=== PATIENT | female | born 1955 | race Caucasian/White ===

== ENCOUNTER 2017-02-02 05:37 | Inpatient (IN) | payer OTHER ==
[~2017-02-02] VITALS: Ht 170.2 cm; Wt 70.5 kg
[2017-02-02] VITALS (17 sets, daily range): BP systolic 105–139; BP diastolic 66–80; PULSE 73–85; RESP 10–18; O2SAT 97–100
[2017-02-02] MEDS: Lactated Ringer's 1,000 ML IV SCH ×3 (05:00→08:22)
[2017-02-02] MEDS ORDERED: DEXTROSE 5% IV ONE (06:00)
[2017-02-02] MEDS ORDERED: Bupivacaine Liposome 1.3% 20 mL Inj INFILTRATE ONE ×2 (06:00→08:19)
[2017-02-02] MEDS ORDERED: CEFOTETAN IV ONE ×2 (06:00→06:10)
[2017-02-02] MEDS ORDERED: Lactated Ringer's 500 ML IV PRN (07:17)
[2017-02-02] MEDS ORDERED: Lactated Ringer's 1,000 ML IV SCH (07:17)
--- NOTE | 2017-02-02 07:17 | PCM.HPANE ---
Patient Data Date of Service: February 02, 2017 Surgeon Admitting Provider: Attending Provider:Cali Jason MD Primary Care Physician:Ivis Other Provider:Hanna Amado Anesthesia Reason for Visit Sigmoid Diverticulitis Ht/WT & BMI Height (Feet): 5 Height (Inches): 7.00 Weight (Kilograms): 70 Body Mass Index 24.00 Allergies Coded Allergies: No Known Allergies (Unverified , 01/28/17) Past Anesthesia History Anesthesia History: Denies:: Abnormal Airway, Anesthesia Reactions (no prior surgery), Difficult Intubation, Fam Anesthesia Reaction Diabetes History Hx Diabetes?: No Current Bedside Blood Glucose: 96 MRSA MRSA: No Medications Hypertension Medication: No Home Meds Incl Beta Koffi: No No Active Prescriptions or Reported Meds History History of ENT Problems?: No HEENT History: Denies:: Abnormal Airway Cataracts Difficult Intubation Dysphagia Glaucoma Hearing Problem Sinus Problem TMJ Denture Type: None Teeth Condition: Within Normal Limits Hx of Heart Problems?: No Cardiovascular History: Denies:: AICD Abdominal Aortic Aneurism Atrial Fibrillation Chest Pain Congestive Heart Failure Coronary Artery Disease Edema Heart Murmur Hypertension Irregular Heartbeat Pacemaker Peripheral Vascular Rheumatic Fever Hx of Respiratory Problem?: No Respiratory History: Denies:: Asthma COPD Emphysema Oxygen Administration Pneumonia Tuberculosis Use of C-PAP Machine Use of Inhalers / NEBS Hx Neurologic Problems?: No Neurological History: Denies:: Alzheimer's Disease CVA Dementia Headaches Multiple Sclerosis Parkinson's Disease Seizures TIA Hx of GI Problems?: Yes Hx of Problems?: No Genitourinary History: Denies:: Kidney Stones Urinary Tract Infection Female Hx: Denies:: Currently (post menopausal ) Problems with Breasts? Skin History: Denies:: History Skin Disorders? Pressure Ulcers Hx Musculoskeletal Problems?: Yes Musculoskeletal History: Positive for:: Osteoarthritis Denies:: Back Injury Fibromyalgia Joint Replacement Myasthenia Gravis Systemic Lupus Hx of Psycho/Social Problems?: No Psycho Social History: Denies:: Anxiety Hx Depression Hx Surgeries?: No Hx Any Other Health Problems?: Yes Other History: Denies:: Cancer Thyroid Disease History Blood Transfusions: Positive for:: Accept Blood Products? Denies:: Blood Transfusions Hx Diabetes: NoBedside Blood Glucose: 96 Hx Alcohol Use: YesAlcoholic Drinks Per Day: one glass wine dailyHx Substance Use: NoHave You Smoked inLast 12 mo: No Stop/Bang S-Snoring: Do You Snore Loudly: No T-Tired: feel tired, fatigued: No O-Obsered: Observed not breath: No P-Blood Pressure: treated: No B- Body Mass Index > 35 kg/m2: No A- Age over 50: Yes N- Neck Large Circumference: No G- Gender Male: No ISAÍAS Total Score: 1 ISAÍAS Risk Assessment: Low Risk, <3 Yes Risk Assessment Category Category 1A: Patient has history of documented sleep apnea, and HAS NOT received any narcotic, sedative or anesthesia administration during this stay. Category 1B: Patient has history of documented sleep apnea, and HAS received any narcotic , sedative or anesthesia administration during this stay Category 2: Patient has SUSPECTED Obstructive Sleep Apnea, and HAS received any narcotic , sedative or anesthesia administration during this stay. Category 3: Patient has SUSPECTED Obstructive Sleep Apnea and HAS NOT received narcotic, sedative or anesthesia administration during this stay. Category 4: Outpatient in Procedural Areas with known sleep apnea or who screen positive for High Risk via the STOP/BANG questionnaire. Exam Exam Vital Signs Vital Signs Date Time Temp Pulse Resp B/P Pulse Ox O2 Delivery O2 Flow Rate FiO2 02/02/17 06:30 36.1 81 16 108/76 98 Room Air General Appearance: Alert, Oriented X3, Cooperative, No Acute Distress HEENT/AIRWAY: MP 1 Lungs: Clear to Auscultation, Normal Air Movement Heart: Exam Unremarkable, Regular Rate/Rhythm, No Murmurs/Rubs/Gallops Meds/Labs/Diagnostics Admission Meds Current Medications Lactated Ringer's (Lr) 1,000 ml @ 120 mls/hr Q8H20M IV Last administered on t 06:30; Start 02/02/17 at 05:00; Stop 02/02/17 at 13:19 Bedside Blood Glucose: 96 Plan Impression Patient chart reviewed, patient interviewed and anesthestic plan with risks, benefits, and alternatives discussed, and informed consent obtained. NPO per Anesth. Guidelines: Yes ASA Physical Status: ASA2 Mod Systemic Disease Anesthetic Plan: GA Bene/Risks/Altern/Consents: Yes HP Complete Prior to Induction: Yes Nadir Israel MD February 02, 2017 07:17
[2017-02-02] MEDS ORDERED: Phenylephrine 10,000 mCg/mL Inj IVPUSH PRN (07:20)
[2017-02-02] MEDS ORDERED: HYDROmorphone 1 mg/mL Inj IVPUSH PRN (07:20)
[2017-02-02] MEDS ORDERED: Ondansetron 2 mg/mL 2 mL Inj IVPUSH PRN ×2 (07:20→13:40)
[2017-02-02] MEDS ORDERED: Dexamethasone 4 mg/mL Inj IVPUSH PRN (07:20)
[2017-02-02] MEDS ORDERED: EPHEDrine Sulfate 50 mg/mL Inj IVPUSH PRN (07:20)
[2017-02-02] MEDS ORDERED: hydrALAZINE 20 mg/mL Inj IVPUSH PRN (07:20)
[2017-02-02] MEDS ORDERED: Labetalol 5 mg/mL 4 mL Inj IV PRN (07:20)
[2017-02-02] MEDS ORDERED: MetoCLOpramide 5 mg/mL 2 mL Inj IVPUSH PRN ×2 (07:20→13:40)
--- NOTE | 2017-02-02 11:28 | PCM.SURGOP ---
Surgical Operative Report Date of Service: February 02, 2017 Pre Operative Diagnosis Sigmoid diverticulitis Post Operative Diagnosis Same Procedure: Laparoscopic sigmoid colectomy Surgeon and Plating Department Helper: Surgeon: Cali Jason MD Assistants: Pam Garcia PA-C Indication for Procedure 61-year-old woman who has had a total of 12 episodes of documented sigmoid diverticulitis. None of her episodes have been uncomplicated. She also has a strong family history, in that her mother and sister both underwent colon resection for sigmoid diverticulitis. She is an avid traveler, traveling to fairly remote areas. She had colonoscopy, which was negative for inflammatory bowel disease or malignancy. After discussion of risks and benefits, she agreed to proceed with laparoscopic sigmoid colectomy. Findings: Both ureters were easily visualized. A 33 mm stapled EEA side to end anastomosis was performed. Procedure Details After smooth induction of general endotracheal anesthesia, she was placed in the low lithotomy position. A Pena catheter was placed. The abdomen and perineum were prepped and draped in wide sterile fashion. A procedural pause was performed according to the SCOAP checklist, and all were found to be in agreement. A 1 cm supraumbilical vertical incision was made. Dissection was carried down with electrocautery until the midline fascia was incised, and the peritoneal cavity was entered without difficulty. Pneumoperitoneum was established. She was placed in Trendelenburg position. The area of sigmoid diverticulitis was visualized, which was minimally adherent to the left pelvic sidewall. There were no small bowel adhesions. The uterus and bladder looked normal. 5 mm ports were placed under visualization in the left midabdomen, the inferior midline abdomen, and the right lower quadrant. The small bowel was retracted. The sigmoid colon was mildly adherent to the left pelvic sidewall. The ureters were easily visualized, because she is nonobese. The took a normal course high up on the pelvic sidewall, well away from planned area of sigmoid resection. The peritoneum was incised on both sides, down to the level of the peritoneal reflection. The proximal location of transection of the sigmoid colon was chosen, proximal to the indurated area, where the colon looked normal. A mesenteric window was created. Using the LigaSure device, the branches of the inferior mesenteric artery and vein were divided. Dissection was carried down along both pelvic sidewalls to the level of the peritoneal reflection. The right lower quadrant port site was upsized to a 12 mm port, to allow use of the Palisades stapler through that site. The rectosigmoid junction was skeletonized distally, including the posterior aspect of the mesorectum. The proximal sigmoid colon was skeletonized. It was divided using an Palisades 60 mm stapler with a blue bowel load. The rectum was divided with the Palisades 60 mm stapler with a blue load. There was a tiny amount of medial rectum still attached, and this was divided with a second firing of the 60 mm stapler with a blue load. The sigmoid colon was completely dissected free at this point. The midline infraumbilical port site was removed, and the incision was extended to 5 cm. A wound protector was placed. The sigmoid colon was brought out through the wound protector, oriented with suture, and sent for permanent pathology. Pneumoperitoneum was reestablished. Under visualization, EEA sizers passed through the anus to the rectal stump. The 33 mm EEA stapler was chosen. A colotomy was made in the tenia woodrow of the proximal sigmoid colon, and the anvil was secured with an 0 Prolene pursestring suture. Gloves and instruments were changed. Again, pneumoperitoneum was reestablished. The descending colon was mobilized by incising the white line of Toldt until the anvil was able to easily reach into the pelvis with no tension. The splenic flexure of the colon did not need to be taken down. The EEA stapler was passed through the anus, and the spike was brought out just posterior to the staple line on the rectum under visualization. The stapler was docked, and a stapled anastomosis was performed. The stapler was removed, and the anastomotic donuts were sent for permanent pathology. Both donuts were circumferentially intact. The anastomosis was then tested with both saline and air, and there was no evidence of anastomotic leak. The 12 mm right lower quadrant port was removed, and the fascia was closed with an inlet closure device with an 0 Vicryl suture. The left lower quadrant port was removed under visualization. The supraumbilical port was removed, and the fascia was closed with an 0 Vicryl suture in a figure- of-eight. The wound protector was removed. The fascia was closed with running looped 0 PDS sutures 2. Liposomal bupivacaine was instilled into the fascia and into the subcutaneous tissue. The skin incisions were closed with running 4 -0 Monocryl subcuticular stitches. Steri-Strips and sterile dressings were applied. At the end the case all needle and sponge counts were correct 2. The patient was awakened from anesthesia without difficulty, and taken to the recovery room in satisfactory condition, having tolerated the procedure well. Complications There were no periprocedural complications identified. Surgical Specimen Removed: Yes Specimen sent to Pathology: Yes Surgical Specimen description: Sigmoid colon. Anastomotic donuts. Anesthetic Plan: GA Grafts, Implants: None Output, Estimated Blood Loss: 50 Blood Administration during moy: No Drains: None Catheters: Urethral 2 Way Pena copies to: Valdemar Smith MD, Joshua D MD February 02, 2017 11:28
[2017-02-02] MEDS: fentaNYL-PF 50 mCg/mL 2 mL Inj IVPUSH PRN ×4 (12:34→13:11)
--- NOTE | 2017-02-02 12:53 | PCM.ANEP1 ---
Post Anesthesia Phase 1 PACU Phase 1 Assessment Date of Service: February 02, 2017 Vital Signs Vital Signs Date Time Temp Pulse Resp B/P Pulse Ox O2 Delivery O2 Flow Rate FiO2 02/02/17 12:45 80 10 116/70 100 Simple Mask 10 02/02/17 12:35 82 13 118/70 100 Simple Mask 10 02/02/17 12:25 81 12 130/74 100 Simple Mask 10 02/02/17 12:15 36.3 79 11 119/77 100 Simple Mask 10 02/02/17 12:10 80 13 115/76 100 Simple Mask 10 02/02/17 12:05 76 11 119/74 100 Simple Mask 10 02/02/17 12:00 79 11 111/66 100 Simple Mask 8 02/02/17 11:55 79 11 113/80 100 Simple Mask 8 02/02/17 11:50 78 11 111/70 100 Simple Mask 8 02/02/17 11:45 36.1 73 10 139/71 100 Simple Mask 8 02/02/17 06:30 36.1 81 16 108/76 98 Room Air Anesthetic Administered: GA Level of Alertness: Sleepy, easy to arouse Pain: No Nausea or Vomiting: No Airway Device: Oralpharangeal Airway Oxygen Delivery: Room Air Lungs: Clear to Auscultation, Normal Air Movement Complications: No Nadir Israel MD February 02, 2017 12:53
[2017-02-02] MEDS ORDERED: HYDROmorphone 0.5 mg/0.5 mL iSecure Syringe IVPUSH PRN (13:40)
[2017-02-02] MEDS ORDERED: Ondansetron 2 mg/mL 2 mL Inj ONE (14:53)
[2017-02-02] MEDS ORDERED: Rocuronium 10 mg/mL 5 mL Inj ONE (14:53)
[2017-02-02] MEDS ORDERED: HYDROmorphone 2 mg/mL Inj ONE (14:53)
[2017-02-02] MEDS ORDERED: Dexamethasone 4 mg/mL Inj ONE (14:53)
[2017-02-02] MEDS ORDERED: Ketamine 10 mg/mL 20 mL Inj ONE ×2 (14:53)
[2017-02-02] MEDS ORDERED: fentaNYL-PF 50 mCg/mL 2 mL Inj ONE (14:53)
[2017-02-02] MEDS ORDERED: Propofol 10,000 mCg/mL 20 mL Inj ONE (14:53)
[2017-02-02] MEDS ORDERED: Lidocaine PF 1% 30 mL Inj ONE (14:53)
[2017-02-02] MEDS: Dextrose 5% Lactated Ringer's 1,000 ML IV SCH (15:09)
[2017-02-02] MEDS: Acetaminophen IV 1,000 MG in IV Premix 1 EACH IV SCH ×2 (16:10→19:39)
[2017-02-02] MEDS: Heparin 5,000 Unit/mL Inj SUBQ SCH (16:42)
--- NOTE | 2017-02-02 16:57 | NUR ---
Arrival to Floor Patient arrives to floor from PACU at 1430. Patient alert and oriented, abdominal dressings x4 clean, dry and intact. Patient denies nausea or out of control pain. Ordered fluids administered. SCDs in place. All CMS intact. Patient on nonrebreather at 10 liters per minute per protocol, O2 sats upper 90s. Pena catheter in place and draining pale urine to gravity. Care is ongoing.
[2017-02-03] MEDS: Heparin 5,000 Unit/mL Inj SUBQ SCH ×3 (00:37→16:12)
--- NOTE | 2017-02-03 01:47 | NUR ---
Pain On initial assessment, patient stated pain at 8/10 on pain scale. IV Tylenol administered. Patient tolerating sips of water and juice. VSS. Pena draining to gravity. Call light within reach. Care continues.
[2017-02-03] MEDS: Dextrose 5% Lactated Ringer's 1,000 ML IV SCH (02:08)
[2017-02-03] MEDS ORDERED: 0.9% Sodium Chloride 250 ML ONE (02:26)
[2017-02-03] MEDS: Acetaminophen IV 1,000 MG in IV Premix 1 EACH IV SCH ×4 (02:58→20:30)
[2017-02-03 05:18] VITALS: BP 104/67; PULSE 75; RESP 16; O2SAT 96
[2017-02-03 07:11] LABS: BASOPHILS % (AUTO) 0.1 % (0-3); EOSINOPHILS % (AUTO) 0 % (0-5); MONOCYTES % (AUTO) 14.2 % (4-12); Mean Corpuscular Hemoglobin 29.2 pg (27.0-35.0); Mean Corpuscular Volume 88.2 fL (81-100); NEUTROPHILS % (AUTO) 68.8 % (40-74); Platelet Count 221 bil/L (150-400)
--- NOTE | 2017-02-03 07:21 | PROG NOTE ---
[address] [address] PROGRESS NOTE PATIENT: DANIEL MITCHELL : 1955 MR#: [id number] ADMIT: 02/02/2017 JOB ID: [id number] DATE: 02/03/2017 SUBJECTIVE: The patient is seen in followup. Pain control has been adequate overnight, and she has not taken narcotics. She states that the IV Tylenol works well, but towards the end of the 6-hour period, she is in a moderate amount of pain. She has no nausea. She feels a lot of rumbling in the abdomen, but has not had significant flatus or bowel movement yet. OBJECTIVE: Temperature 36.8, pulse 75, blood pressure 104/67, saturation 96% on 2 liters. General, she is resting in bed in no acute distress. Chest is clear. Heart regular rate and rhythm, no murmurs. Abdomen is flat and soft. Her incisions are clean with no erythema. Bowel tones are hyperactive. The Pena catheter has clear yellow urine, urine output was 1000 cc overnight. ASSESSMENT AND PLAN: A 61-year-old woman with sigmoid diverticulitis, postoperative day 1, status post laparoscopic sigmoid colectomy with anastomosis. She is doing well clinically. IV fluids will be turned off today. Pena catheter will be removed this morning. She will continue on a liquid diet until she has some flatus or bowel movement. She was encouraged to walk today and if she does not have good enough pain control with Tylenol alone to be ambulatory, that she should use narcotics as necessary.
[2017-02-03 07:28] VITALS: BP 104/67; PULSE 68; RESP 18; O2SAT 96
[2017-02-03] MEDS: Polyethylene Glycol (PEG) 17 Gm Powder PO SCH (12:09)
[2017-02-03 13:36] VITALS: BP 108/75; PULSE 76; RESP 18; O2SAT 97
--- NOTE | 2017-02-03 15:45 | NUR ---
Social Work: Screening/Readiness for Discharge D: EMR reviewed. Pt is a 61 y/o female admitted for sigmoid diverticulitis per H&P. SW met with pt at bedside to conduct screening. Pt was alert and oriented x3. SW explained role and wrote phone number on white board. Pt's insurance is [employer] and PCP is Valdemar Smith MD. Pt has LTC insurance through [email or web address]. SW confirmed pt has completed DPOA/advanced directive ppw and provided a copy to the hospital. Pt lives at home with spouse in [place]. Pt is independent at baseline. Pt to discharge home with spouse via POV when medically stable. SW does no anticipate any discharge needs at this time. SW will continue to follow. A: Pt who is independent at baseline. P: Pt to discharge home with spouse via POV when medically stable. No anticipated discharge needs at this time. SW will continue to follow. KELSIE Hilliard
--- NOTE | 2017-02-03 16:18 | NUR ---
Activity Pt up ambulating to BR and in room x2 today. Pain increases quite a bit from a 3-5/10 to a 7/10 making pt tearful. Increased Oxycodone dose from 5mg to 10mg at this time to attempt to control pain better with activity. IV Tylenol has been scheduled and given q 6hrs.
[2017-02-03 19:21] VITALS: BP 116/74; PULSE 72; RESP 16; O2SAT 96
[2017-02-04] MEDS: Heparin 5,000 Unit/mL Inj SUBQ SCH ×3 (00:43→16:33)
[2017-02-04] MEDS: Acetaminophen IV 1,000 MG in IV Premix 1 EACH IV SCH ×2 (02:45→10:20)
[2017-02-04 04:41] VITALS: BP 123/81; PULSE 71; RESP 18; O2SAT 97
--- NOTE | 2017-02-04 05:03 | NUR ---
Pain / sleep continues w/ routine APAP IV thru NOC; prn oxycodone (2 tabs) x 1 effective for c/o BTP in NOC. Reports "painful gas bubbles" several times, able to pass them after relaxation and bedpan placed. Slept well thru the NOC, appears comfortable. Dsgs to ABD are CDI. VS are stable. CTM for changes.
--- NOTE | 2017-02-04 10:02 | PROG NOTE ---
[address] [address] PROGRESS NOTE PATIENT: DANIEL MITCHELL : 1955 MR#: [id number] ADMIT: 02/02/2017 JOB ID: [id number] DATE: 02/04/2017 SUBJECTIVE: The patient is seen in followup. Yesterday, she tried to get by without narcotics, but has been requiring some oral oxycodone. She has no nausea. She is not really hungry yet. She is passing some flatus but the amount has decreased somewhat. Most of her pain is in the lower midline incision. She is urinating without difficulty. OBJECTIVE: Temperature 36.7, pulse 71, blood pressure 123/81, saturation 97% on room air. General: She is resting in bed, in no acute distress. Chest is clear. Heart: Regular rate and rhythm. No murmurs. Abdomen is soft, mildly distended. Her incisions are clean but there is a small ecchymoses of the inferior midline incision which is tender. Bowel tones are present. ASSESSMENT AND PLAN: A 61-year-old woman with sigmoid diverticulitis, postoperative day two, status post laparoscopic sigmoid colectomy with anastomosis. She is doing well clinically. Ambulation was encouraged. We will continue daily MiraLAX. She can have a soft diet. I think she should be ready for discharge from the hospital tomorrow at the earliest.
[2017-02-04] MEDS: Polyethylene Glycol (PEG) 17 Gm Powder PO SCH (12:22)
[2017-02-04 12:48] VITALS: BP 120/81; PULSE 67; RESP 16; O2SAT 95
--- NOTE | 2017-02-04 13:20 | NUR ---
Social Work: Readiness for Discharge D: EMR reviewed. Pt is on day 2 of hospitalization for sigmoid diverticulitis per H&P. Pt is POD 2. Pt is not medically stable, anticipate 1-2 more days. Pt's diet is being advanced. [employer] received phone call from pt's requesting information about purchasing a raised toilet seat. [employer] informed them that they could purchase one through [employer], [employer], or a medical supply store. Pt and stated understanding, denied any additional questions or concerns related to discharge. Pt to discharge home with spouse via POV when medically stable. SW does no anticipate any discharge needs at this time. SW will continue to follow. A: Pt who is independent at baseline. P: Pt to discharge home with spouse via POV when medically stable. No anticipated discharge needs at this time. SW will continue to follow. KELSIE Perez
--- NOTE | 2017-02-04 15:29 | PATH ---
SURGICAL PATHOLOGY Attending Physician:Cece Chisholm CASE STATUS: Signed Out PATIENT NAME: DANIEL MITCHELL PID: [id number] : 1955 DATE COLLECTED:02/02/2017 20:33 SPECIMEN: 1: Colon, Segment Resection, Non-Tumor 2: Colon, Resection Margin (donut) CLINICAL HISTORY: SIGMOID DIVERTICULITIS 1). SIGMOID COLON, SUTURE ARELLANO PROXIMAL END 2). ANASTOMOTIC DOUGHNUTS FINAL DIAGNOSIS: 1.SIGMOID COLON: SEGMENT OF COLON (9.5 CM RESECTED LENGTH) WITH DIVERTICULAR DISEASE. NO ACTIVE DIVERTICULITIS IDENTIFIED. SUTURE GRANULOMAS IDENTIFIED, CONSISTENT WITH PRIOR SURGERY. NO EVIDENCE OF NEOPLASIA. 2.ANASTOMOTIC DOUGHNUTS: SEGMENTS OF COLON WITH NO DIAGNOSTIC ALTERATIONS. ICD10 code K57.30 GROSS DESCRIPTION: The specimens are received in formalin, labeled with the patient's name, and sublabeled as the following: (1) sigmoid colon; (2) anastomotic doughnuts. (1) The specimen consists of a segment of colon (length-9.5 cm, proximal diameter-3.0 cm, distal diameter-3.2 cm) attached adipose tissue (up to 3.3 cm in depth). The resection margins are received stapled. The specimen is oriented with a black suture indicating the proximal margin. The mucosa is mendoza and compact distorted folds containing diffuse diverticuli and thickened ho. Ink code: black-resection margin. Section code: (1A) proximal resection margin, longitudinally sectioned, territory sales representative; (1B) distal resection margin, longitudinally sectioned, territory sales representative; (1C-1F) colon segment, serially sectioned and submitted proximal to distal, territory sales representative. (2) The specimen consists of 2 unoriented segments of colon (segment #1: length-0.7 cm, diameter-2.0 cm; segment #2: length-1.3 cm, diameter-3.1 cm). The mucosa is mendoza smooth and shiny. Segment #1 is encircled by a blue suture with the resection margin is received open. Segment #2 resection margin is received stapled. No nodules, masses or lesions are identified. Ink code: black-resection margin. Section code: (2A-2B) segment #1, bisected; (2C-2D) segment #2, bisected. Specimen entirely submitted. 02/03/17 MICRO DESCRIPTION: See diagnosis. ICD-9 CODES: CPT CODES: 1: 17262 2: 20773 Electronically Signed Out Mariza Nguyen MD [facility]ology [facility] [address], [place] [address] Technical component performed at [facility], [facility] [address], [place], [address]
--- NOTE | 2017-02-04 17:13 | NUR ---
Pain Medications The scheduled Tylenol was late at 1430 due to Acetaminophen being over 3,000 between the IV Tylenol and the other pain medication. Pt was ok with waiting a little past due for the Tylenol and is trying to hold out on not using the other PRN as often but informed to keep pain under control.
[2017-02-04 20:26] VITALS: BP 121/78; PULSE 73; RESP 20; O2SAT 95
[2017-02-04 21:09] VITALS: BP 77/41; PULSE 81; RESP 18; O2SAT 98
[2017-02-05] MEDS: Heparin 5,000 Unit/mL Inj SUBQ SCH ×3 (00:04→17:36)
--- NOTE | 2017-02-05 03:03 | NUR ---
Pain/Ambulation Pt. reported pain getting up to a 6/10 with ambulation. 1 tab Oxycodone given. Pt. reports passing flatus. Pt. reported after awhile pain went down to a 4/10. Will continue to monitor.
[2017-02-05 04:44] VITALS: BP 127/78; PULSE 70; RESP 18; O2SAT 96
[2017-02-05] MEDS ORDERED: OXYC5TAB72 PO (07:25)
[2017-02-05] MEDS ORDERED: POLY17PO6 PO (07:25)
--- NOTE | 2017-02-05 10:03 | PROG NOTE ---
[address] [address] PROGRESS NOTE PATIENT: DANIEL MITCHELL : 1955 MR#: [id number] ADMIT: 02/02/2017 JOB ID: [id number] DATE: 02/05/2017 SUBJECTIVE: The patient is seen in followup. She is doing fairly well but still does not feel ready to go home yet from a pain standpoint. She continues to pass fairly large amounts of flatus but has not had stool yet. She is urinating without difficulty. She has no nausea. She is fairly comfortable at rest but just has quite a bit discomfort with getting up to a chair and walking around. OBJECTIVE: Temperature 36.9, pulse 70, blood pressure 127/78, saturation 96% on room air. In general, she is resting in bed, in no acute distress. Chest is clear. Heart: Regular rate and rhythm. No murmurs. Abdomen is soft, nondistended. Bowel tones are present. Her incision has ecchymosis but no erythema. The skin incisions are well approximated. ASSESSMENT AND PLAN: A 61-year-old woman postoperative day three, status post laparoscopic sigmoid colectomy with anastomosis. She is doing well. I think she can go home at any time, mainly based at this point upon her pain control. She would like to see how it goes this morning. I think if she feels better by midday or afternoon, she can go home today. Otherwise, likely home tomorrow.
[2017-02-05] MEDS: Polyethylene Glycol (PEG) 17 Gm Powder PO SCH (12:11)
[2017-02-05 12:13] VITALS: BP 124/79; PULSE 66; RESP 18; O2SAT 96
--- NOTE | 2017-02-05 17:28 | PCM.DISURG ---
Surgical Discharge Instruction Date of Service February 05, 2017 Dates of Hospitalization Date of Hospital Admission February 02, 2017 at 14:52 Providers Admitting Physician: Cali Jason MD Primary Care Physician: Nopcp Attending Physician: Cali Jason MD Discharge Diagnosis Discharge Diagnosis sigmoid diverticulitis Post Operative diagnosis Same Diet Discharge Diet: No restrictions Activity Discharge Activity-General: Activity as pain allows, No lifting >15 pounds for 2 weeks Dressing and Incisional Care Dressing Care: Allow Steri Stripes to fall off Hygiene: January shower Follow Up Plan Follow Up Plan with Dr. Jason in 7-10 days Call your provider for: Fever (over 101.5F), Increasing abdominal pain, Vomiting, Discharge @ incision, pus discharge Cali Jason MD February 05, 2017 17:28
--- NOTE | 2017-02-05 18:06 | NUR ---
Bowel Movement Patient reports three soft bowel movements this shift. Patient reports less pain with transfers than previously, states transfers are becoming easier. Lap sites x4 CDI. Care is ongoing.
[2017-02-05 20:16] VITALS: BP 113/75; PULSE 78; RESP 18; O2SAT 96
[2017-02-06] MEDS: Heparin 5,000 Unit/mL Inj SUBQ SCH ×2 (00:47→08:30)
--- NOTE | 2017-02-06 05:10 | NUR ---
Mobility Able to ambulate to BR with FWW SBA. Reports increase in pain with movement, declines offer of pain med other than Tylenol. Observed sleeping most of night. Hourly rounding ongoing.
[2017-02-06 05:15] VITALS: BP 119/77; PULSE 69; RESP 16; O2SAT 96
--- NOTE | 2017-02-06 07:36 | PCM.PNSURG ---
Subjective Visit Information: Reason for Visit Sigmoid Diverticulitis Surgery/Surgery Date Post-Op Day # Date of Admission: February 02, 2017 at 14:52 Hospital Day # Subjective: tolerating soft diet, had BMx4 yesterday and one BM this am, passing flatus Objective Objective Arousable in bed no distress Abd: incisions x4 clean with steristrips, nondistended, no erythema Vital Sign- Last 8 Hours Date Time Temp Pulse Resp B/P Pulse Ox O2 Delivery O2 Flow Rate FiO2 02/06/17 05:15 36.6 69 16 119/77 96 Room Air Intake and Output- Last 8 Hour 02/06/17 Cumulative From/Thru 07:00 01/28/17 14:05 - 02/06/17 05:49 Intake Total 400 ml 7566 ml Output Total 200 ml 8535 ml Balance 200 ml -969 ml Intake Oral 400 ml 5577 ml IV Total 1989 ml Output Urine Total 200 ml 8485 ml Estimated Blood Loss 50 ml # Voids 1 1 # Bowel Movements 0 3 Result Diagram: 02/03/17 0650 02/03/17 0650 Assessment & Plan Impression POD #4 s/p sigmoid resection Doing well Problems: Plan Home today Rx: oxycodone (#30) OK to shower Ok to take home meds Caleb Sanchez MD February 06, 2017 07:36
[2017-02-06 08:45] VITALS: BP 116/77; PULSE 77; RESP 18; O2SAT 94
[2017-02-06] MEDS: Polyethylene Glycol (PEG) 17 Gm Powder PO SCH (12:00)
--- NOTE | 2017-02-06 12:00 | NUR ---
Discharge Pt. discharged to home with and she took all her belongings from room 1024 [facility]. Pt was given educational material on new prescriptions polyethylene glycol 3350 and oxycodone. Pt. was also given educational material on sigmoid diverticulitis printed from [employer]. Pt. was also instructed to follow up with Dr. Jason in 7-10 days. Pt. stated she understood. IV DC'D x1 from left forearm, intact and asymptomatic.
--- NOTE | 2017-02-06 13:29 | NUR ---
Social Work Note: Discharge Data& Assessment: Per pt is medically ready to discharge. Ivone Zacarias is a 61 year old female admitted on 02/02/2017 for sigmoid diverticulitis. Per pt is medically improved, diet is advanced and pt is ambulating at baseline and ready to discharge. SW met with pt and pt at bedside to confirm discharge plan and assess for any unmet needs. Pt confirmed is transporting her home today. Pt and pt deny any other needs. No other discharge needs identified. Plan: Per pt is medically ready to discharge home via POV. Pt and pt deny any other needs. No other discharge needs identified. KELSIE Pittman
--- NOTE | 2017-02-07 19:06 | PCM.DC.SUR ---
Discharge Summary Date of Service: Date of Hospital Admission: February 02, 2017 at 14:52 Date of Operation(s): 02/02/2017 Date of Discharge: 02/06/2017 Diagnosis at Time of Discharge Primary diagnoses: Sigmoid diverticulitis Other chronic condition: 1. Osteoarthritis 2. Colon polyps Problems: Operation Laparoscopic sigmoid colectomy Brief History and Physical: The patient is a 61-year-old woman who has had a total of 12 episodes of documented sigmoid diverticulitis. None of her episodes have been complicated. She also has a strong family history, in that her mother and sister both underwent colon resection for sigmoid diverticulitis. She is an avid traveler, traveling to fairly remote areas. She had colonoscopy, which was negative for inflammatory bowel disease or malignancy. Consultants: None Hospital Course: The patient was admitted and underwent the above-mentioned operation without complication. She initially did well on IV Tylenol only for pain control. At the end of her hospitalization discharge was delayed by one day for pain control issues, this resolved with additional oral narcotic analgesic. IV fluids and Pena catheter were removed on the patient's first postsurgical day, full liquid diet was initiated. By the patient's second postsurgical day diet had been advanced to a soft diet and she was passing flatus. By the evening of her third postsurgical day she had bowel movements. She was stable for discharge as adequate analgesia had been obtained on her fourth postsurgical day. Pathology: FINAL DIAGNOSIS: 1.SIGMOID COLON: SEGMENT OF COLON (9.5 CM RESECTED LENGTH) WITH DIVERTICULAR DISEASE. NO ACTIVE DIVERTICULITIS IDENTIFIED. SUTURE GRANULOMAS IDENTIFIED, CONSISTENT WITH PRIOR SURGERY. NO EVIDENCE OF NEOPLASIA. 2.ANASTOMOTIC DOUGHNUTS: SEGMENTS OF COLON WITH NO DIAGNOSTIC ALTERATIONS. Disposition: The patient was discharged to home on her fourth postsurgical day at which time she was having bowel movements, eating a regular diet with no nausea or vomiting , pain was well controlled on oral analgesic, she was ambulating without assistance, and her wounds were dry and intact, Follow-up Plan: She will follow-up in the office with Dr. Jason in 7-10 days. Polyethylene Glycol 3350 (Miralax) 17 Gm Powd.pack 17 GM PO NOON oxyCODONE (oxyCODONE) 5 Mg Tablet 5-10 MG PO Q4H PRN PRN For Moderate Pain Jackson Snider PA-C February 07, 2017 19:06
== END 2017-02-06 12:00 | disposition home or self-care (01) | DRG 331 ==
LOC: SAS 05:37 → OSC 14:52
PROVIDERS: ADMIT Student in an Organized Health Care Education/Training Program; ATTEND Student in an Organized Health Care Education/Training Program
PROC: 0DTN4ZZ Resection of Sigmoid Colon, Percutaneous Endoscopic Approach (ICD-10-PCS; principal; 2017-02-02 07:30)
DX: K57.32 Diverticulitis of large intestine without perforation or abscess without bleeding (principal)

== ENCOUNTER 2017-04-28 00:01 | Day surgery (SDC) | payer OTHER ==
[~2017-04-28] VITALS: Ht 167.6 cm; Wt 70.0 kg
[~2017-04-28 00:01] MED LIST: ACET325T51 PO; IBUP200C PO
[2017-04-28] MEDS ORDERED: Sodium Chloride LOK Flush 10 mL Syringe IV PRN (06:00)
[2017-04-28] MEDS ORDERED: fentaNYL-PF 50 mCg/mL 2 mL Inj IVPUSH PRN (06:00)
[2017-04-28] MEDS ORDERED: Sodium Biphos-Phos 133 mL Enema RECTAL ONE (12:00)
[2017-04-28 13:11] VITALS: BP 113/76; PULSE 71; RESP 16; O2SAT 97
[2017-04-28] MEDS ORDERED: 0.9% Sodium Chloride 1,000 ML IV ONE ×2 (13:26)
[2017-04-28 13:45] VITALS: BP 117/79; PULSE 74; RESP 14; O2SAT 99
[2017-04-28 13:53] VITALS: BP 113/79; PULSE 78; RESP 12; O2SAT 100
--- NOTE | 2017-04-28 14:10 | ENDO ---
[address] [address] ENDOSCOPY PROCEDURE PATIENT: DANIEL MITCHELL : 1955 MR#: [id number] ADMIT: 04/28/2017 JOB ID: [id number] DATE: 04/28/2017 PREPROCEDURE DIAGNOSIS: Rectal bleeding. POSTPROCEDURE DIAGNOSIS: Rectal bleeding, [id number] internal hemorrhoids. PROCEDURE: Flexible sigmoidoscopy. ENDOSCOPIST: Dr. Cali Jason INDICATIONS: The patient is a 61-year-old woman who underwent a laparoscopic sigmoid colectomy in January of 2017 after 12 documented episodes of sigmoid diverticulitis, all of which had been uncomplicated. She healed well from the operation but she had ongoing intermittent streaks of red blood on the outside of her stool as well as some blood on the toilet paper after bowel movements until two weeks ago when that subsided. She also has a slight pulling sensation in the left lower quadrant in the evening. After discussion of risks and benefits, she agreed to proceed with flexible sigmoidoscopy to evaluate her anastomosis as well as look for hemorrhoidal disease. MEDICATIONS: 1. Versed 2 mg. 2. Fentanyl 50 mcg. FINDINGS: The side-to-end colorectal anastomosis was intact with some slight vascularity but no granulomas. There was one diverticulum just at the anastomosis, but the upstream colon had no evidence of diverticular burden. There was no proctitis. Retroflexion revealed [id number] internal hemorrhoids. DESCRIPTION OF PROCEDURE: In the preoperative area, she received a Fleet enema. She was then brought to the endoscopy suite, where she was connected to hemodynamic monitoring, pulse oximetry, capnography. After digital rectal examination, the PC H 180 AL colonoscope was inserted and advanced under visualization. It was advanced through the side-to-end colorectal anastomosis into the proximal descending colon. The descending colon had no diverticula. There was one diverticulum just at the anastomosis. The anastomosis was widely patent. It was slightly vascular with sort of telangiectatic appearance, but there were no granulomas, no polypoid lesions, and there was no bleeding. The rectum was normal in terms of no evidence of proctitis. Retroflexion was performed which revealed [id number] internal hemorrhoids. The scope was withdrawn and the procedure terminated. She tolerated the entire procedure well. RECOMMENDATIONS: I think the rectal bleeding which has resolved was probably from the vascularity of the anastomosis which should continue to heal with time. If she has ongoing bleeding, then recommend that she followup with me in [facility] for anoscopy and consideration of hemorrhoid banding. For screening purposes, next colonoscopy can be in five years.
== END 2017-04-28 23:59 | disposition home or self-care (01) ==
LOC: END 00:01
PROVIDERS: ATTEND Student in an Organized Health Care Education/Training Program
DX: K57.32 Diverticulitis of large intestine without perforation or abscess without bleeding (principal); K64.8 Other hemorrhoids; K62.5 Hemorrhage of anus and rectum; Z90.49 Acquired absence of other specified parts of digestive tract
CPT/HCPCS: 45330; G0500; J2250; J3010; J7030